=== PATIENT | female | born 2000 | race American Indian/Alaskan Native ===

== ENCOUNTER 2021-03-25 10:36 | Emergency (ER) | payer MEDICAID ==
[2021-03-25 10:51] VITALS: BP 131/56
--- NOTE | 2021-03-25 12:02 | Emergency Department Report ---
Minor Respiratory - HPI Chief Complaint: Chest Pain Stated Complaint: 21WKS /CHEST PAIN Duration: 3 Days Pain Location: Other Severity: mild Minor Respiratory: Yes Sick Contacts, No Rhinorrhea, No Sore Throat, No Able to Tolerate Fluids, No Ear Pain, No Cough, No Hemoptysis, No Chest Pain, No Shortness of Breath, No Fever Other History: 20 yo AA comes to ER with a sharp shooting right sided cp this AM while at work. She left work. Pt is prgnant with twins. lmp 9-21. EDC 7-3. no sob. no fever. no chills. no wheezing. VS normal. not covid immunized. has not had covid. Her SO was dx with pna ? covid related and her pain scared her so she comes to ER. On arrival she has no symptoms and is just concerned because of . . no vag bleed. no abd pain. no back pain. no dysuria. no vag d/c. ambulatory non ill appearing, non toxic. no sob ED Review of Systems ROS: Stated complaint: 21WKS /CHEST PAIN/DIZZY Other details as noted in HPI Comment: All other systems reviewed and negative ED Past Medical Hx - Past Medical History Previous Medical History?: Yes Hx Asthma: Yes - Surgical History Past Surgical History?: No - Family History Family history: no significant - Social History Smoking Status: Never Smoker Substance Use Type: None Minor Respiratory Exam - Exam General: Vital signs noted. No distress. Alert and acting appropriately. HEENT: Yes Moist Mucous Membranes, No Pharyngeal Erythema, No Pharyngeal Exudates, No Rhinorrhea, No Conjuctival Injection, No Frontal Tenderness, No Maxillary Tenderness Ear: Neither TM Bulge, Neither TM Erythema, Neither EAC Pain, Neither EAC Discharge Neck: Yes Supple, No Adenopathy Lungs: Yes Good Air Exchange, No Wheezes, No Ronchi, No Stridor, No Cough, No Labored Respirations, No Retractions, No Use of Accessory Muscles, No Other Abnormal Lung Sounds Heart: Yes Regular, No Murmur Abdomen: Yes Normal Bowel Sounds, No Tenderness, No Peritoneal Signs Skin: No Rash, No Edema Neurologic: Alert and oriented, no deficits. Musculoskeletal: Unremarkable. ED Course Vital Signs 03/25/21 10:48 Temperature 98.6 F Pulse Rate 87 Respiratory 16 Rate Blood Pressure 131/56 [Left] O2 Sat by Pulse 98 Oximetry ED Medical Decision Making - EKG Data EKG shows normal: sinus rhythm Rate: normal - EKG Data Interpretation: no acute changes, normal EKG - Medical Decision Making pt educated on covid10 prevention and testing she has been advised to have her SO tested and isolate as appropriate she too as been instructed to get a rapid test. she has no symptoms and risk of xray outweight what info it would give us- pt acknowledges dc home with dc plan of care- she verbalizes understanding of plan of care. Vital Signs 03/25/21 10:48 Temperature 98.6 F Pulse Rate 87 Respiratory 16 Rate Blood Pressure 131/56 [Left] O2 Sat by Pulse 98 Oximetry - Differential Diagnosis ro uri Critical care attestation.: If time is entered above; I have spent that time in minutes in the direct care of this critically ill patient, excluding procedure time. ED Disposition Clinical Impression: At increased risk of exposure to COVID-19 virus, Disposition: 01 HOME / SELF CARE / HOMELESS Is pt being admited?: No Does the pt Need Aspirin: No Condition: Stable Instructions: Nonspecific Chest Pain, Adult Additional Instructions: COVID TESTING HAVE BOYFRIEND/ TESTED TYLENOL OK FOR PAIN STAY WELL HYDRATED VS NORMAL EKG NORMAL FOLLOW UP WITH OBGYN OR PCP REFERRAL BELOW FOR PCP Referrals: NIGHAT MESA MD [Primary Care Provider] - 3-5 Days JEFE DEAL MD [Staff Physician] - 3-5 Days Time of Disposition: 12:01
--- NOTE | 2021-03-25 13:26 | Electrocardiograph Report ---
[facility] Test Date: 2021-03-25 Test Time: 11:01:57 Pat Name: ROJELIO DAVILA Department: Room: Gender: F Burrito Maker: KAYLEE : 2000 Requested By: ED DOC Order Number: [id number] Reading MD: Raulito Gunderson Measurements Intervals [place] Rate: 86 P: 60 WV: 150 QRS: 30 QRSD: 61 T: 30 QT: 342 QTc: 409 Interpretive Statements Sinus rhythm No previous ECG available for comparison Electronically Signed On 03-25-2021 13:26:39 EST by Raulito Gunderson
== END 2021-03-25 12:33 | disposition home or self-care (01) ==
LOC: ED 10:36
DX: O26.892 Other specified pregnancy related conditions, second trimester (principal); R07.9 Chest pain, unspecified; Z20.822 Contact with and (suspected) exposure to COVID-19; Z3A.21 21 weeks gestation of pregnancy; J45.909 Unspecified asthma, uncomplicated
CPT/HCPCS: 93005; 93010; 99282